=== PATIENT | female | born 1970 | race Caucasian/White ===

== ENCOUNTER 2022-06-15 13:08 | Emergency (ER) | payer MEDICAID ==
[~2022-06-15] VITALS: Ht 172.7 cm; Wt 84.0 kg
[2022-06-15] MEDS ORDERED: MORPHINE SULFATE 4 MG/ML CPJ (NOT FOR IM USE) IV ONE ×3 (13:45→20:30)
[2022-06-15] MEDS ORDERED: KETOROLAC 60MG/2ML VIAL IM ONE (13:45)
[2022-06-15] MEDS ORDERED: ONDANSETRON HCL 4MG/2ML INJ IV ONE (14:15)
[2022-06-15 15:11] LABS: CHLORIDE 106 mEq/L (98-107)
[2022-06-15 15:16] LABS: HCG SCREEN NEGATIVE
[2022-06-15 15:20] LABS: BASOPHILS % 0.5 % (0.0-2.0); HEMATOCRIT. 41.4 % (36.0-48.0); HEMOGLOBIN. 14.1 g/dL (12.0-16.0); MEAN CORPUSCULAR HEMOGLOBIN 34.8 pg (28.0-32.0); MEAN CORPUSCULAR VOLUME 102.3 fL (81.0-99.0); MEAN PLATELET VOLUME 8.8 fl (7.4-10.4); MONOCYTES % 5.6 % (2.0-8.0); NEUTROPHILS % 80.9 % (40.0-76.0); PLATELET 271 x1000/uL (130-400); RED BLOOD CELL COUNT 4.05 mill/uL (4.2-5.4); RED CELL DISTRIBUTION WIDTH 15.1 % (11.6-14.6)
[2022-06-15] MEDS ORDERED: IOHEXOL-300 100 ML BOTTLE ONE ×2 (15:44→16:28)
[2022-06-15] MEDS ORDERED: DEXAMETHASONE 10 MG/ML VIAL IV ONE (20:15)
[2022-06-15] MEDS ORDERED: IOHEXOL-350 100 ML BOTTLE ONE (20:44)
[2022-06-15 22:49] VITALS: BP 129/71
== END 2022-06-15 23:25 | disposition short-term general hospital (02) ==
LOC: ER 13:08
DX: R07.89 Other chest pain (principal); I10 Essential (primary) hypertension; J44.1 Chronic obstructive pulmonary disease with (acute) exacerbation; R51.9 Headache, unspecified; Z88.0 Allergy status to penicillin; V49.9XXA Car occupant (driver) (passenger) injured in unspecified traffic accident, initial encounter; Y93.89 Activity, other specified; Y92.89 Other specified places as the place of occurrence of the external cause; Y99.8 Other external cause status
CPT/HCPCS: 36415; 70450; 70551; 71260; 72125; 72141; 74177; 80053; 84484; 84703; 85025; 93005; 96372; 96374; 96375; 96376; 99291; J1100; J1885; J2270; J2405; Q9967; Z7610